=== PATIENT | male | born 1955 | race Two or more races ===

== ENCOUNTER 2019-08-21 15:38 | Inpatient (IN) | payer OTHER ==
[~2019-08-21] VITALS: Ht 177.8 cm; Wt 110.4 kg
[2019-08-21] MEDS ORDERED: DiphenhydrAMINE 50mg/ml Inj IVP ONE (15:45)
[2019-08-21] MEDS ORDERED: FUROSEMIDE20 M1 ORAL (15:56)
[2019-08-21] MEDS ORDERED: BENAZEPRIL HCL40 MG ORAL (15:56)
[2019-08-21] MEDS ORDERED: LANOXIN250 MCG ORAL (15:56)
[2019-08-21] MEDS ORDERED: SPIRONOLACTONE100 MG ORAL (15:56)
[2019-08-21] MEDS ORDERED: LISINOPRIL20 MG ORAL (15:56)
[2019-08-21 16:10] VITALS: BP 122/27
[2019-08-21 16:37] LABS: BASOPHILS % (AUTO) 1.5 % (0.0-2.0); EOSINOPHILS % (AUTO) 2.5 % (0.0-3.0); HEMATOCRIT 51.8 % (42.0-52.0); HEMOGLOBIN 16.9 G/DL (14.2-18.0); LYMPHOCYTES % (AUTO) 18.4 % (20.0-45.0); MEAN CORPUSCULAR VOLUME 92 FL (80-99); MONOCYTES % (AUTO) 8.4 % (1.0-10.0); NEUTROPHILS % (AUTO) 69.2 % (45.0-75.0); PLATELET COUNT 253 K/UL (150-450); RED BLOOD COUNT 5.63 M/UL (4.70-6.10); RED CELL DISTRIBUTION WIDTH 14.1 % (11.6-14.8); WHITE BLOOD COUNT 8.1 K/UL (4.8-10.8)
[2019-08-21 16:43] LABS: INR 1.3 (0.9-1.1)
[2019-08-21 16:49] LABS: ANION GAP 1 mmol/L (5-15); BLOOD UREA NITROGEN 25 mg/dL (7-18); CALCIUM 8.9 MG/DL (8.5-10.1); CARBON DIOXIDE 31 MMOL/L (21-32); CHLORIDE 100 MMOL/L (98-107); CREATININE 1.1 MG/DL (0.55-1.30); POTASSIUM 4.9 MMOL/L (3.5-5.1); SODIUM 132 MMOL/L (136-145)
--- NOTE | 2019-08-21 16:58 | Diagnostic Imaging Report ---
Indication: Shortness of breath Technique: One view of the chest Comparison: none Findings: The heart is markedly enlarged. There are median sternotomy sutures. No definite infiltrates, effusions, or congestion. Impression: Cardiomegaly. No definite acute process
--- NOTE | 2019-08-21 16:59 | Emergency Room Report ---
History of Present Illness General Chief Complaint: Vomiting Source: Patient Present Illness HPI 63-year-old male history of CHF history of hypertension history of vertigo presents with acute dizziness prior to arrival 1 hour, aggravated with movement alleviated with certain positions, severity is severe lasting minutes, no fevers no chills no chest pain, he does endorse some nausea vomiting patient presents for evaluation He also reports increased weight gain, and shortness of breath he states his legs have gotten thicker as well as abdomen he has a reduced EF <30% Allergies: Coded Allergies: No Known Allergies (Unverified , 08/21/19) Patient History Past Medical History: see triage record Reviewed Nursing Documentation: PMH: Agreed; PSxH: Agreed Nursing Documentation-PMH Hx Hypertension: Yes Review of Systems All Other Systems: negative except mentioned in HPI Physical Exam Vital Signs Date Time Temp Pulse Resp B/P (MAP) Pulse Ox O2 Delivery O2 Flow Rate FiO2 08/21/19 15:34 97.2 46 16 140/100 (113) 99 Room Air Sp02 EP Interpretation: reviewed, normal General Appearance: well appearing, no apparent distress, alert Head: normocephalic, atraumatic Eyes: bilateral eye PERRL, bilateral eye EOMI ENT: uvula midline, moist mucus membranes Neck: supple, thyroid normal, supple/symm/no masses Respiratory: lungs clear, no respiratory distress, no retraction, no accessory muscle use Cardiovascular #1: normal peripheral pulses, regular rate, rhythm, no edema, no gallop, systolic murmur, edema - 2+ pitting edema lower extremity, and abdomen enlarged Gastrointestinal: non tender, soft, no guarding, no rebound Musculoskeletal: normal inspection Neurologic: alert, oriented x3, automatic pinsetter mechanic III-XII nml as tested, motor strength/tone normal, cerebellar normal, normal gait, speech normal, other - Fatigable nystagmus, romberg negative, finger to nose testingi ntact, gait stable Psychiatric: mood/affect normal Skin: no rash, warm/dry Medical Decision Making Diagnostic Impression: Primary Impression: Vomiting Qualified Codes: R11.2 - Nausea with vomiting, unspecified Additional Impressions: Vertigo CHF exacerbation Qualified Codes: I50.9 - Heart failure, unspecified ER Course 63-year-old male presents with vertigo, neurologic exam notable for fatigable nystagmus low suspicion for stroke, no Romberg, no failure of finger-nose testing, Patient also with fluid retention, differential diagnosis includes CHF exacerbation, ACS Diuretics given, in addition patient was also given benadryl for vertigo. Patient admitted to Dr. High under observation per insurance Laboratory Tests Test 08/21/19 15:49 White Blood Count 8.1 K/UL (4.8-10.8) Red Blood Count 5.63 M/UL (4.70-6.10) Hemoglobin 16.9 G/DL (14.2-18.0) Hematocrit 51.8 % (42.0-52.0) Mean Corpuscular Volume 92 FL (80-99) Mean Corpuscular Hemoglobin 30.0 PG (27.0-31.0) Mean Corpuscular Hemoglobin Concent 32.7 G/DL (32.0-36.0) Red Cell Distribution Width 14.1 % (11.6-14.8) Platelet Count 253 K/UL (150-450) Mean Platelet Volume 5.9 FL (6.5-10.1) L Neutrophils (%) (Auto) 69.2 % (45.0-75.0) Lymphocytes (%) (Auto) 18.4 % (20.0-45.0) L Monocytes (%) (Auto) 8.4 % (1.0-10.0) Eosinophils (%) (Auto) 2.5 % (0.0-3.0) Basophils (%) (Auto) 1.5 % (0.0-2.0) Prothrombin Time 13.7 SEC (9.30-11.50) H Prothrombin Time INR 1.3 (0.9-1.1) H PTT 30 SEC (23-33) Sodium Level 132 MMOL/L (136-145) L Potassium Level 4.9 MMOL/L (3.5-5.1) Chloride Level 100 MMOL/L (98-107) Carbon Dioxide Level 31 MMOL/L (21-32) Anion Gap 1 mmol/L (5-15) L Blood Urea Nitrogen 25 mg/dL (7-18) H Creatinine 1.1 MG/DL (0.55-1.30) Estimate Glomerular Filtration Rate > 60 mL/min (>60) Glucose Level 144 MG/DL (74-106) H Calcium Level 8.9 MG/DL (8.5-10.1) Total Bilirubin 1.5 MG/DL (0.2-1.0) H Direct Bilirubin 0.7 MG/DL (0.0-0.3) H Aspartate Amino Transferase (AST) 32 U/L (15-37) Alanine Aminotransferase (ALT) 15 U/L (12-78) Alkaline Phosphatase 90 U/L (46-116) Troponin I 0.023 ng/mL (0.000-0.056) Pro-B-Type Natriuretic Peptide 5946 pg/mL (0-125) H Total Protein 9.3 G/DL (6.4-8.2) H Albumin 3.4 G/DL (3.4-5.0) Globulin 5.9 g/dL Albumin/Globulin Ratio 0.6 (1.0-2.7) L Lipase 228 U/L (73-393) EKG Diagnostic Results EKG Time: 16:47 EP Interpretation: Afib rate 90, qtc 469, no acute st elevations, right axis dev Rhythm Strip Diag. Results Rhythm Strip Time: 18:41 EP Interpretation: yes Rate: 88 Rhythm: other - afib Chest X-Ray Diagnostic Results Chest X-Ray Diagnostic Results : Chest X-Ray Ordered: Yes # of Views/Limited/Complete: 1 View Indication: Shortness of Breath EP Interpretation: Yes Interpretation: other - Cardiomegaly Impression: Other - Cardiomegaly Electronically Signed by: Fabrizio Antonio MD CT/MRI/US Diagnostic Results CT/MRI/US Diagnostic Results : Impression Preliminary Findings Only See Final Report For Complete Findings CT HEAD Without Contrast: No acute ICH, mass effect or edema. No evidence of acute cortical stroke. No midline shift or hydrocephalus. Visualized sinuses and mastoid air cells are clear. No acute calvarial fracture. Radiologist: Jonel Cisse M.D. Study ready at 18:39 and initial results transmitted at 18:53 Last Vital Signs Date Time Temp Pulse Resp B/P (MAP) Pulse Ox O2 Delivery O2 Flow Rate FiO2 08/21/19 16:11 82 27 08/21/19 16:10 95.0 122/27 99 Room Air Disposition: ADMITTED INPATIENT Condition: Stable Referrals: [facility],REFERRING (PCP) Fabrizio Antonio MD Aug 21, 2019 16:59
[2019-08-21 17:00] LABS: ALANINE AMINOTRANSFERASE 15 U/L (12-78); ALBUMIN 3.4 G/DL (3.4-5.0); ALBUMIN/GLOBULIN RATIO 0.6 (1.0-2.7); ALKALINE PHOSPHATASE 90 U/L (46-116); ASPARTATE AMINO TRANSFERASE 32 U/L (15-37); BILIRUBIN,TOTAL 1.5 MG/DL (0.2-1.0)
[2019-08-21] MEDS ORDERED: Metoclopramide 10mg/2ml Inj IVP ONE (17:00)
[2019-08-21 17:01] LABS: BILIRUBIN,DIRECT 0.7 MG/DL (0.0-0.3)
[2019-08-21 17:30] VITALS: BP 91/73
[2019-08-21 18:30] VITALS: BP 111/63
--- NOTE | 2019-08-21 18:54 | Diagnostic Imaging Report ---
Indication: Dizziness Technique: Contiguous 5 mm thick transaxial imaging of the head obtained in a Siemens Sensation [address] scanner. Soft tissue and bone windows generated. Automatic Exposure Control was utilized. Total Dose length Product (DLP): [address] Dose Index Volume (CTDIvol): 60 mGy Comparison: none Findings: There is mild prominence of the ventricles, basal cisterns, and cerebral sulci consistent with atrophy. Mild, nonspecific, white matter hypoattenuation is noted throughout the brain consistent with chronic small vessel disease. There is no midline shift, edema, acute hemorrhage, mass effect, or abnormal extra-axial fluid collections. Bones are unremarkable. Impression: No acute intracranial bleed, mass effect or edema. Mild atrophy of the brain. Nonspecific white matter hypoattenuation probably due to chronic small vessel disease. [facility] has communicated the preliminary results to the Emergency Department. Their findings are largely concordant with this report. The CT scanner at [facility] is accredited by the [employer] and the scans are performed using dose optimization techniques as appropriate to a performed exam including Automatic Exposure control.
[2019-08-21 19:20] VITALS: BP 132/87
[2019-08-22] VITALS: BP 108/56
[2019-08-22] MEDS ORDERED: Zolpidem 5mg tab ORAL PRN (01:45)
--- NOTE | 2019-08-22 03:15 | History and Physical Report ---
DATE OF ADMISSION: 08/21/2019 REASON FOR ADMISSION: Nausea, vomiting, and congestive heart failure exacerbation. HISTORY OF PRESENT ILLNESS: This 63-year-old male with advanced directives for DNR has a history of chronic systolic heart failure with an ejection fraction of less than 30%. According to family members, he was recently hospitalized at [facility] with similar symptoms. He was home convalescing and more recently developed dizziness for the last hour prior to the presentation. The dizziness was positional lasting few minutes and associated with some nausea and vomiting. The patient notes increasing shortness of breath and leg swelling as well as increasing abdominal girth over the past week. Weight gain has been noted as well. PAST MEDICAL HISTORY: Hypertension, congestive heart failure, and history of mitral valve replacement. ALLERGIES: None. FAMILY HISTORY: Noncontributory. SOCIAL HISTORY: Negative for smoking, alcohol, or substance abuse. MEDICATIONS: Reviewed and reconciled. REVIEW OF SYSTEMS: A 10-point review of systems performed, all systems negative other than noted above. PHYSICAL EXAMINATION: VITAL SIGNS: Blood pressure 140/100, pulse 46, respirations 16 in the emergency room. Presently blood pressure 132/87, pulse 81, respirations 20, temperature 95. NECK: Jugular venous pressure elevated. LUNGS: Diminished breath sounds. CARDIAC: Regular rhythm and rate. Point of maximal impulse diffuse. Diminished S1. Normal S2. A 2/6 systolic apical murmur. ABDOMEN: Obese with some ascites. EXTREMITIES: 2+ edema. NEUROLOGIC: Nonfocal. LABORATORY AND DIAGNOSTIC DATA: Lipase 228. BUN 25, creatinine 1.1, sodium 132, potassium 4.9, bicarb 31. INR 1.3. Hematocrit 52%, white count is 8.1. CAT scan of the brain with no acute process. Chest x-ray with cardiomegaly and mild pulmonary venous congestion. EKG with atrial fibrillation at 88 beats per minute. IMPRESSION: 1. Acute on chronic biventricular systolic congestive heart failure. 2. Passive congestion of the liver and bowel edema contributing to GI symptoms mainly nausea, vomiting. 3. Vertigo due to middle ear pathology, less likely vertebrobasilar ischemia. 4. Labile hypertension, hypertensive urgency, and bradycardia, resolved. 5. Hypertensive heart disease. PLAN: 1. Cardiac monitoring. 2. IV Diuresis. 3. Optimization of anti-failure regimen. 4. Consider motility agents. 5. DNR per family members and advanced directives. 6. DVT prophylaxis. 7. Venous duplex scan. 8. Consideration for cardiac defibrillator performance status is appropriate. 9. Consider further GI workup, should nausea and vomiting persist. Prabhjot High M.D. DR: LYNN JOB#: [id number] CC: TAMICA
[2019-08-22 04:00] VITALS: BP 110/59
[2019-08-22 07:15] LABS: ALANINE AMINOTRANSFERASE 14 U/L (12-78); ALBUMIN/GLOBULIN RATIO 0.6 (1.0-2.7); ALKALINE PHOSPHATASE 73 U/L (46-116); ANION GAP 2 mmol/L (5-15); ASPARTATE AMINO TRANSFERASE 32 U/L (15-37); BILIRUBIN,TOTAL 1.6 MG/DL (0.2-1.0); BLOOD UREA NITROGEN 26 mg/dL (7-18); CALCIUM 8.5 MG/DL (8.5-10.1); CARBON DIOXIDE 30 MMOL/L (21-32); CHLORIDE 102 MMOL/L (98-107); CREATININE 0.9 MG/DL (0.55-1.30); POTASSIUM 4.2 MMOL/L (3.5-5.1); SODIUM 134 MMOL/L (136-145)
[2019-08-22 07:18] LABS: BILIRUBIN,DIRECT 0.6 MG/DL (0.0-0.3)
[2019-08-22 08:00] VITALS: BP 107/67
[2019-08-22] MEDS: Carvedilol 6.25mg Tab ORAL SCH ×2 (08:30→18:20)
[2019-08-22] MEDS: Spironolactone 50mg tab ORAL SCH ×2 (08:31→21:27)
[2019-08-22] MEDS: Heparin 5000 units/ml inj SUBQ SCH ×2 (08:35→21:28)
[2019-08-22] MEDS ORDERED: Furosemide 40mg tab ORAL SCH (09:00)
[2019-08-22] MEDS ORDERED: Magnesium Oxide 400mg tab ORAL SCH (09:30)
[2019-08-22 12:00] VITALS: BP 126/86
--- NOTE | 2019-08-22 13:12 | Diagnostic Imaging Report ---
APPROVED REPORT CPT Code: 26031 Present Symptoms Lower Extremity Edema: Bilateral BILATERAL: Imaging reveals a patent deep venous system bilaterally. There is no evidence of thrombus within the common femoral, superficial femoral, popliteal or tibial segments. The greater saphenous veins are within normal limits. Doppler indicates pulsatile flow within these segments.
[2019-08-22 16:00] VITALS: BP 136/85
[2019-08-22 20:00] VITALS: BP 122/94
[2019-08-23] VITALS: BP 118/84
[2019-08-23 04:00] VITALS: BP 103/66
[2019-08-23 08:00] VITALS: BP 100/63
[2019-08-23] MEDS: Spironolactone 50mg tab ORAL SCH ×2 (09:00→21:00)
[2019-08-23] MEDS: Carvedilol 12.5mg tab ORAL SCH ×2 (09:00→17:37)
[2019-08-23] MEDS: Heparin 5000 units/ml inj SUBQ SCH ×2 (09:31→21:54)
--- NOTE | 2019-08-23 10:45 | Progress Note ---
DATE: 08/22/2019 INTERNAL MEDICINE AND CARDIOLOGY PROGRESS NOTE SUBJECTIVE: Case was discussed with the patient's daughter. She states that the patient is followed regularly at [facility]. The patient and daughter both reaffirmed DNR status and are aware that the patient would without an intervention or if his heart stops. Cardiology Department at [facility] has repeatedly felt that he is not a candidate for repeat valve replacement due to the severity of his cardiomyopathy. An echocardiogram today confirmed that with ejection fraction of 10% and four-chamber enlargement. OBJECTIVE: VITAL SIGNS: Blood pressure 122/89, pulse 98, respirations 18. GENERAL: Anasarca. LUNGS: Diminished breath sounds. CARDIAC: Regular rhythm and rate. Normal S1, S2. A 1/6 systolic murmur. EXTREMITIES: A 4+ edema. LABORATORY DATA: Reviewed. IMPRESSION: 1. Severe cardiomyopathy, noncompliance with medications, confirmed today with the patient and his family members. I stressed that he will cannot function and avoid exacerbations even if one dose of his medications is missed due to the severity of his condition. 2. Valvular cardiomyopathy. 3. Acute on chronic systolic congestive heart failure. PLAN: 1. Cardiac monitoring. 2. IV diuresis. 3. Maximize anti-failure therapy. 4. Stress compliance. 5. Not a candidate for cardiac defibrillator due to poor prognosis. 6. Family advised to seek a second opinion regarding surgery from another tertiary care facility, although after reviewing his echocardiogram, I would agree that he is at surgical intervention would be extremely high risk, but he may be a candidate for transplant and that should be addressed at an appropriate facility such as [facility] once he is stabilized and agrees and proves that he will follow medical therapy. Prabhjot High M.D. DR: LYNN JOB#: [id number] CC:
[2019-08-23 12:00] VITALS: BP 116/80
--- NOTE | 2019-08-23 14:00 | Cardiology Report ---
APPROVED REPORT EKG Measurement Heart [id number] Atrial fibrillation Rightward axis Low voltage QRS Incomplete left bundle branch block Nonspecific ST and T wave abnormality Prolonged QT Abnormal ECG
[2019-08-23 16:00] VITALS: BP 134/76
[2019-08-23 20:00] VITALS: BP 116/83
--- NOTE | 2019-08-23 21:30 | Progress Note ---
DATE: 08/23/2019 SUBJECTIVE: The patient has been urinating without difficulty. He states he is less short of breath. He has some leg cramps. Today's laboratory studies are pending. OBJECTIVE: VITAL SIGNS: Blood pressure 100/63, pulse 67, respirations 20, and afebrile. Still with anasarca. LUNGS: Diminished breath sounds. HEART: Irregularly irregular rhythm. Normal S1, S2. A 1/6 systolic murmur at apex. EXTREMITIES: With 2+ edema. IMPRESSION: 1. Valvular cardiomyopathy. 2. History of MVR. 3. Severe systolic dysfunction. 4. Acute on chronic decompensation of systolic heart failure. 5. Paroxysmal atrial and ventricular arrhythmias. 6. Mild protein-calorie malnutrition. 7. Hypomagnesemia. 8. Status post replacement therapy. PLAN: 1. Continue diuresis. 2. Replace electrolytes including magnesium as needed. 3. Titrate anti-failure regimen. 4. Stress outpatient compliance. 5. We will discuss chronic anticoagulation with the patient and family members. 6. DVT prophylaxis for now. Prabhjot High M.D. DR: DELVIN JOB#: [id number] CC:
[2019-08-23] MEDS ORDERED: Meclizine 25mg tab ORAL PRN (23:15)
[2019-08-24] VITALS: BP 105/75
[2019-08-24 04:00] VITALS: BP 108/69
[2019-08-24 08:00] VITALS: BP 103/74
[2019-08-24 08:04] LABS: BASOPHILS % (AUTO) 0.9 % (0.0-2.0); EOSINOPHILS % (AUTO) 3.4 % (0.0-3.0); HEMATOCRIT 44.4 % (42.0-52.0); HEMOGLOBIN 14.9 G/DL (14.2-18.0); LYMPHOCYTES % (AUTO) 21.8 % (20.0-45.0); MEAN CORPUSCULAR VOLUME 90 FL (80-99); MONOCYTES % (AUTO) 9.3 % (1.0-10.0); NEUTROPHILS % (AUTO) 64.6 % (45.0-75.0); PLATELET COUNT 226 K/UL (150-450); RED BLOOD COUNT 4.93 M/UL (4.70-6.10); RED CELL DISTRIBUTION WIDTH 14.1 % (11.6-14.8); WHITE BLOOD COUNT 7.2 K/UL (4.8-10.8)
[2019-08-24] MEDS: Carvedilol 12.5mg tab ORAL SCH ×2 (08:33→17:39)
[2019-08-24] MEDS: Spironolactone 50mg tab ORAL SCH ×2 (08:34→22:07)
[2019-08-24] MEDS: Heparin 5000 units/ml inj SUBQ SCH ×2 (08:37→21:02)
[2019-08-24 08:43] LABS: ALANINE AMINOTRANSFERASE 13 U/L (12-78); ALBUMIN/GLOBULIN RATIO 0.6 (1.0-2.7); ALKALINE PHOSPHATASE 85 U/L (46-116); ANION GAP 7 mmol/L (5-15); ASPARTATE AMINO TRANSFERASE 28 U/L (15-37); BILIRUBIN,TOTAL 1.5 MG/DL (0.2-1.0); BLOOD UREA NITROGEN 24 mg/dL (7-18); CALCIUM 8.5 MG/DL (8.5-10.1); CARBON DIOXIDE 28 MMOL/L (21-32); CHLORIDE 99 MMOL/L (98-107); POTASSIUM 3.5 MMOL/L (3.5-5.1); SODIUM 134 MMOL/L (136-145)
[2019-08-24 08:49] LABS: BILIRUBIN,DIRECT 0.6 MG/DL (0.0-0.3)
[2019-08-24 12:00] VITALS: BP 111/76
[2019-08-24 16:00] VITALS: BP 118/77
[2019-08-24 20:00] VITALS: BP 108/70
[2019-08-24] MEDS ORDERED: Warfarin Sodium 5mg ORAL ONE (22:00)
--- NOTE | 2019-08-24 22:30 | Progress Note ---
DATE: 08/24/2019 CARDIOLOGY AND INTERNAL MEDICINE PROGRESS NOTE SUBJECTIVE: The patient has less abdominal swelling, but is still quite edematous. Shortness of breath is improved. 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 OBJECTIVE: VITAL SIGNS: Blood pressure 118/77, heart rate 74, respiratory rate 20, and afebrile. LUNGS: With diminished breath sounds and rales. CARDIAC: Irregularly irregular rhythm. Normal S1, S2 with a 2/6 systolic apical murmur. ABDOMEN: Anasarca. EXTREMITIES: With 2+ dependent edema. LABORATORY DATA: Magnesium 1.5. Potassium 3.5, BUN 24, and creatinine 1. Pro-natriuretic peptide 4800. IMPRESSION: 1. Severe cardiomyopathy. 2. Acute on chronic systolic congestive heart failure. 3. Valvular cardiomyopathy with mitral valve prosthesis. 4. Hypomagnesemia. PLAN: 1. Advance diuresis. 2. Replace magnesium intravenously. 3. Additional potassium orally. 4. Start full anticoagulation for cardioembolic prophylaxis. Lilia Borges JOB#: [id number] CC:
[2019-08-25] VITALS (7 sets, daily range): BP systolic 91–122; BP diastolic 40–77
[2019-08-25 07:22] LABS: INR 1.2 (0.9-1.1)
[2019-08-25] MEDS: Carvedilol 12.5mg tab ORAL SCH ×2 (08:47→17:35)
[2019-08-25] MEDS: Spironolactone 50mg tab ORAL SCH ×2 (08:47→21:21)
[2019-08-25 17:12] LABS: ANION GAP 7 mmol/L (5-15); BLOOD UREA NITROGEN 23 mg/dL (7-18); CALCIUM 8.7 MG/DL (8.5-10.1); CARBON DIOXIDE 32 MMOL/L (21-32); CHLORIDE 98 MMOL/L (98-107); CREATININE 0.9 MG/DL (0.55-1.30); POTASSIUM 4.2 MMOL/L (3.5-5.1); SODIUM 137 MMOL/L (136-145)
--- NOTE | 2019-08-25 21:31 | Progress Note ---
DATE: 08/25/2019 CARDIOLOGY AND INTERNAL MEDICINE PROGRESS NOTE SUBJECTIVE: The patient notes decreased swelling of his belly and legs, less shortness of breath as well. He notes some bleeding from his rectum yesterday. He states this happens in the past when he takes blood thinners and now he recalls that is why he has refused to take them. He is aware of the stroke risk without anticoagulants, but still does not wish to take them. PHYSICAL EXAMINATION: VITAL SIGNS: Blood pressure 122/61, pulse 56, respirations 20, afebrile. NECK: Jugular venous distention. LUNGS: Diminished breath sounds. Few rales. CARDIAC: Irregularly irregular. With a 1/6 systolic apical murmur. ABDOMEN: There is still moderate ascites. EXTREMITIES: A 2+ dependent lower extremity edema. LABORATORY AND DIAGNOSTIC DATA: Natriuretic peptide has decreased to the range of 2900. Potassium is 4.2. Monitor reveals sinus rhythm with episodes of ventricular tachycardia up to 14 beats. IMPRESSION: 1. Severe cardiomyopathy. 2. Acute on chronic systolic congestive heart failure. 3. Rectal bleeding likely due to hemorrhoids. 4. Paroxysmal atrial fibrillation. 5. Nonsustained ventricular tachycardia. 6. Mitral valve prosthesis. 7. Mild protein-calorie malnutrition. PLAN: 1. Continue diuresis. 2. Replace electrolytes as needed. 3. No anticoagulation for reasons described above. 4. Maximize anti-failure therapy diuretics once clinically euvolemic. Prabhjot High M.D. DR: LYNN JOB#: [id number] CC:
[2019-08-26] VITALS: BP 116/65
[2019-08-26 08:00] VITALS: BP 119/69
[2019-08-26] MEDS: Carvedilol 12.5mg tab ORAL SCH ×2 (08:23→17:23)
[2019-08-26] MEDS: Spironolactone 50mg tab ORAL SCH ×2 (08:24→21:20)
--- NOTE | 2019-08-26 10:37 | Cardiology Report ---
APPROVED REPORT EXAM: Two-dimensional and M-mode echocardiogram with Doppler and color Doppler. INDICATION Congestive Heart Failure M-Mode DIMENSIONS IVSd1.3 (0.7-1.1cm)Left Atrium (MM)5.0 (1.6-4.0cm) LVDd7.7 (3.5-5.6cm)Aortic Root3.8 (2.0-3.7cm) PWd0.8 (0.7-1.1cm)Aortic Cusp Exc.1.9 (1.5-2.0cm) IVSs1.3 cm LVDs6.4 (2.5-4.0cm) PWs1.5 cm Global left ventricular hypokinesis ,ischemic cardiomyopathy can not be excluded . Mild left ventricular enlargement . Left ventricular ejection fraction estimated to be 10 %. No evidence of left ventricular hypertrophy. No pericardial effusion. Mild left atrial enlargement . Moderate right atrial enlargement . Right ventricular size at upper limits of normal. Focal aortic valve sclerosis with adequate cusp excursion. Thickened mitral valve leaflets with reduced excursion, pt had a history of mitral valve replacement . Moderate mitral annulus and aortic root calcification. Normal pulmonic valve structure. Normal tricuspid valve structure. IVC dilated at 2.8 cm without physiologic collapse suggestive of increased RA pressure. A color flow and spectral Doppler study was performed and revealed: Mild aortic insufficiency. Mild to moderate mitral regurgitation. Peak mitral valve gradient of 20 mm Hg and a mean of 11 mmHg. Mitral valve area 0.8 cm2 calculated by continuity equation. Left ventricular diastolic fucntion not diagnostic . Moderate tricuspid regurgitation. Tricuspid systolic velocities suggests peak right ventricular systolic pressure of 59mmHg,consistent with moderate pulmonary hypertension. Pulmonic regurgitation present.
[2019-08-26 12:00] VITALS: BP 103/66
[2019-08-26 16:00] VITALS: BP 108/73
[2019-08-26 20:00] VITALS: BP 111/76
[2019-08-27] VITALS: BP 101/71
[2019-08-27 04:00] VITALS: BP 105/58
[2019-08-27 06:32] LABS: BASOPHILS % (AUTO) 1.2 % (0.0-2.0); HEMATOCRIT 48.3 % (42.0-52.0); HEMOGLOBIN 15.8 G/DL (14.2-18.0); LYMPHOCYTES % (AUTO) 19.6 % (20.0-45.0); MEAN CORPUSCULAR VOLUME 91 FL (80-99); MONOCYTES % (AUTO) 10.1 % (1.0-10.0); NEUTROPHILS % (AUTO) 66.2 % (45.0-75.0); PLATELET COUNT 224 K/UL (150-450); RED BLOOD COUNT 5.29 M/UL (4.70-6.10); RED CELL DISTRIBUTION WIDTH 14.2 % (11.6-14.8); WHITE BLOOD COUNT 6.9 K/UL (4.8-10.8)
[2019-08-27 07:24] LABS: ANION GAP 4 mmol/L (5-15); BLOOD UREA NITROGEN 24 mg/dL (7-18); CALCIUM 8.7 MG/DL (8.5-10.1); CARBON DIOXIDE 33 MMOL/L (21-32); CHLORIDE 97 MMOL/L (98-107); POTASSIUM 3.9 MMOL/L (3.5-5.1); SODIUM 134 MMOL/L (136-145)
[2019-08-27 08:00] VITALS: BP 122/66
[2019-08-27] MEDS: Carvedilol 12.5mg tab ORAL SCH ×2 (09:04→17:51)
[2019-08-27] MEDS: Spironolactone 50mg tab ORAL SCH ×2 (09:04→20:58)
[2019-08-27 12:00] VITALS: BP 124/80
[2019-08-27 16:00] VITALS: BP 130/92
[2019-08-27 20:00] VITALS: BP 144/79
[2019-08-28] VITALS: BP 109/66
[2019-08-28] MEDS ORDERED: COREG12.5 MG ORAL (01:40)
[2019-08-28] MEDS ORDERED: FUROSEMIDE40 MG ORAL (01:41)
[2019-08-28] MEDS ORDERED: ALDACTONE50 MG ORAL (01:42)
[2019-08-28] MEDS ORDERED: POTASSIUM CHLO20 ME1 ORAL (01:43)
[2019-08-28 04:00] VITALS: BP 100/59
--- NOTE | 2019-08-28 05:15 | Progress Note ---
DATE: 08/26/2019 CARDIOLOGY PROGRESS NOTE SUBJECTIVE: The patient is seen and evaluated. No new rectal bleeding. He remains off anticoagulation. OBJECTIVE: VITAL SIGNS: Blood pressure 105/73, heart rate 48 to 87, respiratory rate 20. Monitored rhythm, sinus. Single episode of bradycardia noted. No pauses. LUNGS: Diminished breath sounds. CARDIAC: Normal S1 and S2. 2/6 systolic murmur at apex. Irregularly irregular. ABDOMEN: Soft with less ascites. EXTREMITIES: 1+ dependent edema. IMPRESSION: 1. Acute on chronic systolic congestive heart failure, improved. 2. Valvular cardiomyopathy with mitral prosthesis. 3. Paroxysmal atrial fibrillation, nonsustained ventricular tachycardia. 4. Passive congestion of the liver. 5. Rectal bleeding and intolerance to anticoagulation in the past. PLAN: 1. Continue diuresis. 2. Maximization of anti-failure drugs. 3. No anticoagulation based on bleeding risks. 4. Discharge planning in 1 to 2 days based on progress. Prabhjot High M.D. DR: KRISTY JOB#: [id number] CC:
[2019-08-28 08:00] VITALS: BP 119/71
[2019-08-28] MEDS: Spironolactone 50mg tab ORAL SCH (08:35)
[2019-08-28] MEDS: Carvedilol 12.5mg tab ORAL SCH (08:38)
--- NOTE | 2019-08-28 11:00 | Progress Note ---
DATE: 08/27/2019 CARDIOLOGY PROGRESS NOTE SUBJECTIVE: The patient feels better. His abdomen is soft. Monitor atrial fibrillation. PHYSICAL EXAMINATION: VITAL SIGNS: Blood pressure 130/92, pulse 70, respirations 18, afebrile. LUNGS: With diminished breath sounds, but no rales. CARDIAC: Irregularly irregular rhythm. Normal S1, S2. A 2/6 systolic murmur at apex. ABDOMEN: With mild ascites. EXTREMITIES: With trace edema. IMPRESSION: Significantly improved at least 20 pounds of weight loss, but currently with severe cardiomyopathy. PLAN: 1. Continue current regimen. 2. Anticipate transition to oral therapy and outpatient follow up in one to two days. 3. No plans for anticoagulation despite cardioembolic risk. 4. Based on historical data from the patient and evidence of rectal bleeding with anticoagulation likely due to hemorrhoids. 5. Outpatient GI, follow up with primary driver courier is planned. Prabhjot High M.D. DR: LAI/JIMMIE JOB#: [id number] CC:
[2019-08-28 11:56] VITALS: BP 123/80
[2019-08-28 14:22] VITALS: BP 123/80
--- NOTE | 2019-08-31 11:51 | Discharge Summary ---
Discharge Summary Discharge Summary _ DATE OF ADMISSION: 08/22/2018 DATE OF DISCHARGE: 08/28/2019 DISCHARGED BY: REASON FOR ADMISSION: 63 years old male with past medical history of CHF, hypertension, vertigo, presented with acute dizziness , which started prior to arrival for about an hour , aggravated by movement and certain positions , lasting several minutes. He endorsed some nausea and vomiting. Patient reported increased weight gain and shortness of breath. He also reported that his legs have gotten thicker as well as the abdomen. Patient also reported to have similar problems the past, his ejection fraction was less than 30% He denied chest pain . He denied fever and chills. Upon evaluation patient was bradycardic with heart rate of 46 ,blood pressure was 140/100, pulse oximetry was stable on room air Laboratory work-up revealed no leukocytosis , stable hemoglobin , hematocrit and platelet count. Sodium 132 . BUN 25, creatinine 1.1 . Glucose 144 . Troponin 0 0.023 , pro BNP 54203. EKG revealed atrial fibrillation with controlled ventricular response . Stable LFT, lipase 228 . Chest x-ray revealed cardiomegaly . CT of the head revealed no acute intracranial bleeding , mass-effect or edema. Mild atrophy of the brain noted. Neurological exam was notable for fatigable nystagmus , but ER doctor had low suspicion for stroke: negative Romberg , no failure of [id number] testing. Patient received diuretic and admitted for further management. HOSPITAL COURSE: Patient admitted to telemetry floor. Echocardiogram demonstrated ejection fraction of 10%. Global left ventricular hypokinesis, ischemic cardiomyopathy could not be excluded. No pericardial effusion. Thickened mitral valve leaflets with reduced excursion . Patient had a history of mitral valve replacement. Increased RA pressure. Mild to moderate mitral regurgitation. Right ventricular systolic pressure of 69 consistent with moderate pulmonary hypertension. Moderate tricuspid regurgitation. Patient started on diuretic with close monitoring of volumes and cardiorenal parameters. DVT prophylaxis provided. Guideline directed medical therapy with beta-oracio, SCOT inhibitor , diuretics : Lasix and Aldactone, and digoxin provided . Volumes and cardiorenal parameters were closely monitored. Pro BNP from initial 5943 down to 3045. Venous duplex bilateral lower extremity revealed no evidence of acute DVT. DVT prophylaxis provided. Blood pressure was closely monitored and stabilized. Bradycardia resolved. Supplemental oxygen provided to keep pulse oximetry above 92%. Pulmonary toilet provided as needed. Patient was not a candidate for cardiac defibrillator due to poor prognosis. Family was advised to seek a second opinion regarding surgery from another tertiary care facility , such as [facility] onve patient medically stabizlied. However per meter repairer, patient would be at extremely high surgical risk. Patient significantly improved; at least 20 pounds of weight loss , but had severe cardiomyopathy and poor prognosis. No plans for anticoagulation despite cardioembolic risk. Not tolerated anticoagulation int he past. Based on historical data from the patient and evidence of rectal bleeding with anticoagulation, rectal bleeding was likely due to hemorrhoids. Hemoglobin and hematocrit remained stable Renal parameters and electrolytes were closely monitored, electrolytes further corrected as needed. Hyponatremia resolved. Creatinine remained stable. Magnesium replaced. Supportive care provided. Meclizine provided as needed. Dizziness reoslved, likely was due to middle ear pathology and less likely due to vertebral ischemia Antiemetics provided as needed. Nausea and vomiting subsided . Passive congestion of the liver and bowel edema was contributing to GI symptoms , including nausea and vomiting. LFT remained stable. Total bilirubin slightly elevated 1.6, trending down. Patient clinically stabilized and was ready for discharge home. Outpatient follow up with GI specialist and meter repairer FINAL DIAGNOSES: Acute on chronic systolic congestive heart failure Vertigo (likely due to ear pathology)-resolved Bradycardia-resolved Hypertensive heart disease Valvular cardiomyopathy with mitral valve prosthesis Noncompliance with medication Paroxysmal atrial fibrillation Nonsustained ventricular tachycardia Hypomagnesemia Passive congestion of the liver Mild protein calorie malnutrition Rectal bleeding , likely due to hemorrhoids Intolerance to anticoagulation in the past DISCHARGE MEDICATIONS: See Medication Reconciliation list. DISCHARGE INSTRUCTIONS: Patient was discharged home. Follow-up with a primary care provider in 1 week Outpatient follow up with GI specialist and meter repairer I have been assigned to dictate discharge summary for this account. I was not involved in the patient's management. Elena Garrett NP Aug 31, 2019 11:51
== END 2019-08-28 15:15 | disposition home or self-care (01) | DRG 194 ==
LOC: EDBD 15:38 → EMR 16:09 → 2E 20:11 → EDBEDREQ 20:28 → OBSVTOIN 08-22 17:01
DX: I11.0 Hypertensive heart disease with heart failure (principal); I50.23 Acute on chronic systolic (congestive) heart failure; I50.82 Biventricular heart failure; Z66 Do not resuscitate; Z95.2 Presence of prosthetic heart valve; K76.1 Chronic passive congestion of liver; H74.90 Unspecified disorder of middle ear and mastoid, unspecified ear; R42 Dizziness and giddiness; I16.0 Hypertensive urgency; Z91.14 Patient's other noncompliance with medication regimen; I42.8 Other cardiomyopathies; E44.1 Mild protein-calorie malnutrition; E83.42 Hypomagnesemia; K64.9 Unspecified hemorrhoids; I47.2 Ventricular tachycardia; I48.0 Paroxysmal atrial fibrillation; I42.9 Cardiomyopathy, unspecified; I27.20 Pulmonary hypertension, unspecified; I34.0 Nonrheumatic mitral (valve) insufficiency; I36.1 Nonrheumatic tricuspid (valve) insufficiency
CPT/HCPCS: 36415; 70450; 71045; 80048; 80053; 80162; 82248; 83690; 83735; 83880; 84443; 84484; 85025; 85610; 85730; 87081; 93005; 93306; 93970; 96365; 96366; 96372; 96374; 96375; 99284; J2405; J2765; J8499